=== PATIENT | female | born 1940 | race Caucasian/White ===

== ENCOUNTER 2023-11-25 15:45 | Outpatient (CLI) | payer MEDICARE, OTHER | END 2023-11-25 15:46 | disposition home or self-care (01) | LOC: CSHCP 15:45 | PROVIDERS: ATTEND Internal Medicine | DX: C34.31 Malignant neoplasm of lower lobe, right bronchus or lung (principal) | CPT/HCPCS: 94060; 94726; 94729; 94760 ==